=== PATIENT | male | born 1955 | race Caucasian/White ===

== ENCOUNTER → 2019-03-23 | Outpatient (CLI) | payer BC ==
--- NOTE | 2019-03-23 12:58 | Diagnostic Imaging Report ---
INDICATION: Fall six weeks ago. Patient has a nonhealing wound along the anterior aspect of the left lower extremity at the level of the mid shaft of the tibia and fibula. TIME OF EXAM: 12:38 p.m. TECHNIQUE: Frontal and lateral views of the left tibia and fibula were obtained. FINDINGS: Alignment at the knee and ankle appears normal. There are well-corticated osseous densities adjacent to the medial malleolus, consistent with prior avulsion fractures. No acute fracture is seen. No osseous destructive changes or periosteal reaction are seen to suggest osteomyelitis. Soft tissues are unremarkable. No soft tissue gas is detected. IMPRESSION: No acute abnormality is detected. Dictated by: Dictated on workstation # [id number]
== END ==
LOC: RAD 12:10
PROVIDERS: ATTEND Nurse Practitioner Family
DX: S81.802A Unspecified open wound, left lower leg, initial encounter (principal); L03.116 Cellulitis of left lower limb; W19.XXXA Unspecified fall, initial encounter
CPT/HCPCS: 73590

== ENCOUNTER 2022-08-06 12:56 | Outpatient (RCR) | payer MEDICARE | END 2022-08-07 | disposition home or self-care (01) | PROVIDERS: ATTEND Nurse Practitioner Family | DX: R42 Dizziness and giddiness (principal); R53.1 Weakness; I10 Essential (primary) hypertension ==

== ENCOUNTER 2022-08-21 11:04 | Outpatient (RCR) | payer MEDICARE | END 2022-09-02 13:00 | disposition home or self-care (01) | PROVIDERS: ATTEND Nurse Practitioner Family | DX: R42 Dizziness and giddiness (principal); R53.1 Weakness ==

== ENCOUNTER 2023-02-12 08:31 | Day surgery (SDC) | payer MEDICARE ==
[~2023-02-12] VITALS: Ht 190.5 cm; Wt 106.8 kg
[~2023-02-12 08:31] MED LIST: ACET-168 PO; ALFU10TA12 PO; ALLO300T2 PO; CHOL100048 PO; ENAL-66 PO; EZET10TA49 PO; GABA-486 PO; HYDR30CR94 RC; LEVO200C2 PO; LORA10TA7 PO; MAGN400T7 PO; MULT267T PO; OMEG100032 PO; OMEP20CA18 PO; SILD100T67 PO; TEST60GE2 TD; TR1O15 TP; TRM50T PO; UBID50TA3 PO; VITA1CAP PO
[2023-02-12] MEDS ORDERED: POVIDONE IODINE OPHTH SOLN 5% 30 ML OP ONE (09:15)
[2023-02-12] MEDS ORDERED: MOXIFLOXACIN OPHTH SOLN 5 MG/ML 0.5 ML SYRINGE OP ONE (09:15)
[2023-02-12] MEDS ORDERED: TIMOLOL 0.5% (CATARACTS) 0.3 ML BTL OU PRN (09:15)
[2023-02-12] MEDS ORDERED: LIDOCAINE PF 1% 2 ML VIAL IR PRN (09:15)
[2023-02-12] MEDS: TETRACAINE 0.5% OPHTH SOLN 4 ML BTL (SINGLE DOSE ONLY) OU PRN ×4 (09:20→09:41)
[2023-02-12] MEDS: TROPICAMIDE 1% OPH SOLN (MYDRIACYL) 15 ML BTL OP SCH ×3 (09:27→09:41)
[2023-02-12] MEDS: PHENYLEPHRINE 10% OPHTH SOLN 5 ML BTL OU SCH ×3 (09:27→09:42)
[2023-02-12 09:30] VITALS: BP 204/110
[2023-02-12] MEDS ORDERED: LABETALOL 5 mg/ml 4 ML SINGLE DOSE SYRINGE IV ONE (09:45)
--- NOTE | 2023-02-12 10:12 | Ophthalmologist Pre-Op Note ---
Pre-Operative Progress Note H&P Reviewed The H&P was reviewed, patient examined and no changes noted. Date H&P Reviewed: Feb 12, 2023 Time H&P Reviewed: 10:12 Pre-Op Dx Cataract, Right Eye ALFONSO MEADOWS MD Feb 12, 2023 10:12
[2023-02-12] MEDS ORDERED: MIDAZOLAM INJ 2 MG/2 ML VIAL ONE (10:15)
--- NOTE | 2023-02-12 10:33 | Ophthalmology Operative Report ---
Cataract removal/placement IOL PREOPERATIVE DIAGNOSIS: Cataract Right Eye POSTOPERATIVE DIAGNOSIS: Cataract Right Eye PROCEDURE: Cataract removal and placement of posterior chamber implant, right eye SURGEON: Rob Meadows ANESTHESIA: Topical with sedation COMPLICATIONS: None ESTIMATED BLOOD LOSS: Minimal DESCRIPTION OF PROCEDURE: After proper informed consent was obtained, the patient, a 67 male, was taken to the Operating Room and the right eye was anesthetized with tetracaine. The right eye was then prepped and draped in the usual manner. A wire lid speculum was placed. A paracentesis was made at the left hand position. Preservative free lidocaine was injected into the anterior chamber followed by viscoelastic. A clear corneal incision was made in the temporal position. A capsulorrhexis was preformed and the central nuclear and cortical material were removed. The posterior capsule was polished and Vinicio 19.5 [id number] IOL was placed into the capsular bag. The residual viscoelastic was aspirated and balanced saline solution was injected into the anterior chamber. Moxifloxacin was injected into the anterior chamber. The wound was checked and found to be water tight. The patient tolerated the procedure well without complications. ROB MEADOWS MD Feb 12, 2023 10:33
[2023-02-12 10:42] VITALS: BP 179/101
--- NOTE | 2023-02-12 12:13 | Anesthesia-General Post-Op ---
MAC Patient Condition Mental Status/LOC: Same as Preop Cardiovascular: Satisfactory Nausea/Vomiting: Absent Respiratory: Satisfactory Pain: Controlled Complications: Absent Post Op Complications Complications None Follow Up Care/Instructions Patient Instructions None needed. Anesthesiology Discharge Order Discharge Order Patient was doing well this morning after the procedure with no complaints, stable vital signs, no apparent adverse anesthesia problems. No complications reported per nursing. RUI RECIO DO Feb 12, 2023 12:13
== END 2023-02-12 10:43 | disposition home or self-care (01) ==
LOC: SDC 08:31
PROVIDERS: ATTEND Specialist
DX: H25.9 Unspecified age-related cataract (principal); Z85.850 Personal history of malignant neoplasm of thyroid
CPT/HCPCS: 66984; V2632

== ENCOUNTER 2023-02-23 05:34 | Outpatient (CLI) | payer MEDICARE | END 2023-02-23 09:34 | disposition home or self-care (01) | LOC: PREOP 05:34 | PROVIDERS: ATTEND Specialist | DX: Z01.818 Encounter for other preprocedural examination (principal) ==